=== PATIENT | male | born 1970 | race African-American/Black ===

== ENCOUNTER 2019-09-28 12:35 | Day surgery (SDC) | payer BC ==
[2019-09-27 10:08] VITALS: BMI 31.7
[~2019-09-28 12:35] MED LIST: Bupivacaine PF 0.75% SDV 10 ML ONE; CEFAZOLIN 1 GM VIAL ONE; Dextrose 50% Abboject 50 ML SYRINGE ONE; EPHEDRINE 25 MG/5 ML SYRINGE ONE; Famotidine/PF 20 mg/2ml Vial ONE; Fentanyl 100 MCG/2 ML VIAL ONE; Fluorouracil 100 MG, EPINEPHrine 0.3 MG, Dextrose 50% 3 ML in Ophthalmic Irrigation Sol... IRR SCH; Lidocaine 1% PF 5 ML VIAL ONE; Lidocaine 2% PF 5 ML VIAL ONE; Lidocaine 4% PF 5 ML AMP ONE; Maxitrol 0.1% Opth Oint 3.5 GM TUBE ONE; Midazolam HCl 2 mg/2 ml Vial ONE; Ondansetron PF 4 MG/2 ML Vial ONE; PHENYLEPHRINE-NS 100 MCG/ML 10 ML SYRINGE ONE; PROPOFOL 20 ML ONE; PROPOFOL 200 MG/20 ML VIAL ONE; Succinylcholine Chloride 20 MG/ML 10 ml SYRINGE FS ONE; Triamcinolone 40 MG/ML VIAL ONE
[2019-09-28] MEDS ORDERED: Cyclopentolate 1% Opth Drop 2 ML BOT ONE (13:06)
[2019-09-28] MEDS ORDERED: Phenylephrine 2.5% Ophth Soln 5 ML BOT ONE (13:07)
--- NOTE | 2019-09-28 17:25 | OP ---
DATE OF PROCEDURE: 09/28/2019 PREOPERATIVE DIAGNOSIS: Tractional retinal detachment, left eye. POSTOPERATIVE DIAGNOSIS: Tractional retinal detachment, left eye. PROCEDURE PERFORMED: Pars plana vitrectomy and tractional retinal detachment repair, left eye. ANESTHESIA: General endotracheal anesthesia. PROCEDURE IN DETAIL: The patient was identified in the preoperative holding area where appropriate informed consent for the planned surgical procedure on the left eye had been obtained. The patient was transported to the operative suite where appropriate cardiopulmonary monitoring was established. Local anesthesia was obtained using retrobulbar . The patient was prepped and draped in the usual sterile manner for ophthalmic surgery in the left eye. Lid speculum was placed in the left eye. A 25-gauge trocar was placed in the conjunctiva and sclera superotemporally, inferotemporally, and supranasally. Infusion line was placed inferotemporally. Light pipe and vitreous cutter were inserted into the eye. Core vitrectomy was performed . Tractional detachments were removed from the retina 360. Holes were found along the supratemporal and nasal retina. Panretinal photocoagulation was placed using Endolaser delivery device. 28% sulfur hexafluoride gas was infused into the eye. Trocars were removed. The eye was noted to retain pressure well. Retrobulbar Kenalog and subconjunctival Ancef were placed. Antibiotic ointment was placed. Eye was patched and shielded. The patient was taken to postoperative recovery unit in good condition, having suffered no immediate perioperative complications. The patient was instructed to keep patch and shield on, position, had a followup appointment with Dr. Dior. Job ID: [id number]
== END 2019-09-28 17:20 | disposition home or self-care (01) ==
LOC: SDC 12:35
PROVIDERS: ATTEND Ophthalmology Retina Specialist
PROC: 08T53ZZ Resection of Left Vitreous, Percutaneous Approach (ICD-10-PCS; principal; 2019-09-28)
DX: H33.42 Traction detachment of retina, left eye (principal); E11.9 Type 2 diabetes mellitus without complications
CPT/HCPCS: 36416; 67025; J0171; J0690; J2001; J2250; J2405; J2704; J3010; J3301; J3490; J9190; S0028